=== PATIENT | female | born 1965 | race Two or more races ===

== ENCOUNTER 2022-06-23 13:51 | Emergency (ER) | payer OTHER ==
[~2022-06-23] VITALS: Ht 152.4 cm; Wt 59.0 kg
[2022-06-23] MEDS ORDERED: TOPROL XL25 M1 (14:22)
== END 2022-06-23 17:09 | disposition home or self-care (01) ==
LOC: ER 13:51
DX: B34.9 Viral infection, unspecified (principal); Z85.89 Personal history of malignant neoplasm of other organs and systems; Z20.822 Contact with and (suspected) exposure to COVID-19